=== PATIENT | female | born 1955 | race Caucasian/White ===

== ENCOUNTER 2020-03-16 18:05 | Emergency (ER) | payer MEDICARE, SELFPAY ==
[2020-03-16 18:28] VITALS: BP 147/75; PULSE 69; RESP 17; TEMP 36.7; O2SAT 96; BMI 26.5
--- NOTE | 2020-03-16 18:38 | ED_ITS ---
HPI - Fall General Chief Complaint: Fall Stated Complaint: Fall Time Seen by Provider: 03/16/20 18:36 Source: patient Mode of arrival: ambulatory Limitations: no limitations History of Present Illness MD complaint: fall Onset (ago): hour(s) Fall from: other ( getting other car) Fall witnessed: yes, by family Place fall occurred: street Loss of consciousness: none Prolonged down time: no Symptoms prior to fall: none Context: tripped/slipped ( was getting out of the car and got her foot stuck in pursed and fell out landing on the right elbow shoulder area.) Location of injury: other Location of injury - extremities: right: shoulder and elbow Related Data Home Medications Medication Instructions Recorded Confirmed etanercept 25 mg/0.5 mL 25 mg SUBCUT QWEEK 03/17/20 subcutaneous solution fluticasone 100 mcg-salmeterol 50 1 inh INHALATION Q12H 03/17/20 mcg/dose blistr powdr for inhalation loratadine 5 mg/5 mL oral solution 5 ml PO BID 03/17/20 Allergies Allergy/AdvReac Type Severity Reaction Status Date / Time Sulfa (Sulfonamide Allergy Unknown HIVES Verified 03/17/20 12:37 Antibiotics) [SULFA (SULFONAMIDE ANTIBIOTICS)] Review of Systems Review of Systems: Constitutional: No Weight loss, No Fever, No Chills, No Night Sweats, No Fatigue, No Malaise ENT/Mouth: No Hearing loss, No Ear Pain, No Nasal Congestion, No Sinus Pain, No Hoarseness, No sore throat, No Rhinorrhea, No Swallowing Difficulty Eyes: No Eye Pain, No Swelling, No Redness, No Foreign Body, No Discharge, No Vision Changes Cardiovascular: No Chest Pain, No SOB, No Dyspnea on Exertion, No Orthopnea, No Edema, No Palpitations Respiratory: No Cough, No Sputum, No Wheezing, No Smoke Exposure, No Dyspnea Gastrointestinal: No Nausea, No Vomiting, No Diarrhea, No Constipation, No abdominal Pain, No Hematochezia, No Melena Genitourinary: no irregular bleeding, No Dysuria, No Urinary Frequency, No Hematuria, No Urinary Incontinence, No Urgency, No Flank Pain, No Urinary Flow Changes, No Hesitancy Musculoskeletal:+ r elbow pain Skin: No Skin Lesions, No rash Neuro: No Weakness, No Numbness, No Paresthesias, No Loss of Consciousness, No Dizziness, No Headache Psych: No Anxiety/Panic, No Depression, No SI/HI/AH/VH, No Social Issues, Heme/Lymph: No Bruising, No Bleeding,No Lymphadenopathy Endocrine: No Polyuria, No Polydipsia, No Temperature Intolerance Yes all other systems are reviewed and are negative [facility] [place] Past Medical History Attestation statement: The following information was validated with the patient. Medical History History of ectopic Surgical History H/O: hysterectomy History of cataract surgery Social History Social History Smoking Status: Never smoker Physical Exam Vital Signs: Vital Signs: Vital Signs Temp Pulse Resp BP Pulse Ox 03/16/20 18:28 98.1 F 69 17 147/75 H 96 Body Mass Index 26.5 Const: General: cooperative and healthy appearing; No acute distress or intoxicated appearing Nutritional Appearance: average body habitus Orientation/consciousness: patient oriented x3 HENMT: Head: Yes normal to inspection Ears: hearing grossly normal b ilaterally Eyes: General: appearance normal, both eyes and all related structures Neck: Neck: Yes normal visual inspection and No tender Thyroid: Thyroid normal Chest: Chest palpation & inspection: normal inspection of the chest Resp: Effort & Inspection: normal respiratory effort Cardio: Jugular venous distension: no JVD : General: Yes no CVA tenderness Back/Spine/Pelvis: Back: no CVA tenderness Skin: General skin exam: no rashes or lesions noted Neuro: General: patient oriented x3 Extrem: General: Yes normal to inspection Shoulder/upper arm images: 1. Area of pain but no obvious injury or ecchymosis or bruising. 2. Course Course Course Narrative: Will need x-ray of her right elbow and shoulder. AP co nsistent with mechanical fall tripped on her purse. No other injury. No prodromal symptoms. No LOC. Not on blood thinners. Up-to-date on tetanus. Procedures Orthopedic Splinting/Casting Injury #1: Side: right Upper Extremity Injury Location: upper arm Upper Extremity Immobilizer: sling/shoulder immobilizer and posterior splint Additional Comments: right upper extremity posterior long-arm splint. Arm sling. Neurovascularly intact. Tolerated well. MDM - Fall Differential Diagnosis Differential diagnosis: Likely fracture ( Contusion, strain, sprain) Medical Records Attestation: I reviewed the patient's medical records. Lab Data Attestation: I reviewed the patient's lab results. Imaging Data right shoulder/right elbow: Radiologist's impression: [address] [address] XRay Report Signed Patient: David Wells#: [id number] : 5Acct:[id number] Age/Sex: 64 / FADM Date: 03/16/20 Loc: HO.ED Attending Dr: Ordering Physician: Flaco Kennedy NP Date of Service: 03/16/20 Procedure(s): XR elbow RT min 3V Accession Number(s): [id number] cc: Flaco Kennedy NP~ Examination: XR shoulder RT min 2V, XR elbow RT min 3V Indication: pain s/p fall Comparison: No pertinent prior studies are currently available for comparison. Technique: 3 views of the right shoulder and 3 views of the right elbow obtained. Findings: Right shoulder: Humeral head is well-seated within the glenoid fossa. Bones are normal anatomic alignment. I do not appreciate any acute fracture or dislocation. Minimal degenerative changes in the right acromioclavicular joint. Visualized right upper chest unremarkable. Right elbow: Moderate-sized elbow joint effusion is seen. Minimally displaced fracture through the radial head and neck is seen. This does extend to the articular surface where there is approximately 1 mm of distraction along the anterior surface. No other acute bony abnormality. Impression: Minimally displaced fracture through the radial head extending into the radial neck with associated elbow joint effusion Dictated By:JEANETH BUNN MD Signed By:<Electronically signed by JEANETH BUNN MD in OV>03/16/207 DD/ 183 TD/TT: Message And Delivery Service Pricer: GIAN Discharge Plan Discharge Clinical Impression: Fracture of head of right radius Patient Disposition: Home, Self-Care Instructions: Elbow Fracture (ED) Additional Instructions: ice Elevate Sleeve splint in place until you see orthopedics Sling for comfort Tylenol versus ibuprofen for pain discomfort per label instructions Follow up with Orthopedics in the next 7 days Return if any concerns or worsening symptoms Thank you Referrals: Nathaniel Vo MD [Physician] - 1 week Interventions: ED Discharge Assessment Last Done: 03/16/20 21:26 Discharge Date/Time: 03/16/20 21:27
[2020-03-16 20:09] VITALS: BP 124/55; PULSE 59; RESP 16
--- NOTE | 2020-03-16 20:33 | PC.NURSE ---
POSTERIOR LONG ARM SPLINT APPLIED TO R ARM.
[2020-03-16] MEDS: Acetaminophen 325 MG TABLET 975 MG PO (20:52)
== END 2020-03-16 21:27 | disposition home or self-care (01) ==
PROVIDERS: Emergency Provider Internal Medicine; PCP Internal Medicine
DX: S52.121A Displaced fracture of head of right radius, initial encounter for closed fracture (principal); V48.4XXA Person boarding or alighting a car injured in noncollision transport accident, initial encounter; Y93.89 Activity, other specified; Y92.014 Private driveway to single-family (private) house as the place of occurrence of the external cause; Y99.9 Unspecified external cause status
CPT/HCPCS: 29105; 73030; 73080; 99284

== ENCOUNTER → 2020-03-17 12:35 | Outpatient (BNVA) | payer MEDICARE, SELFPAY | PROVIDERS: PCP Internal Medicine; Visit Provider Physician Assistant | DX: S52.124A Nondisplaced fracture of head of right radius, initial encounter for closed fracture (principal) | CPT/HCPCS: 29105; 99213 ==

== ENCOUNTER 2020-03-25 11:15 | Outpatient (REF) | payer MEDICARE, SELFPAY ==
--- NOTE | 2020-03-25 11:35 | XR_ITS ---
EXAMINATION: XR ELBOW, RIGHT CLINICAL INFORMATION: Nondisplaced fracture of the right radial head. COMPARISON: Right elbow x-rays of 03/16/2020. TECHNIQUE: AP, lateral, and oblique views of the right elbow. FINDINGS: Splinting material is noted over the elbow, distal arm and proximal forearm. Vertically-oriented minimally displaced fracture of the right radial head is again noted, best seen on the oblique view. The minimal displacement appears to be slightly more prominent compared to previous study and may suggest increased displacement versus appears related to technical differences. There is no evidence of associated changes of healing at this time. Elbow joint effusion is noted. No additional fractures are noted. XR/XR elbow RT min 3V IMPRESSION: Minimally displaced right radial head fracture as detailed above without associated changes of healing at this time. Elbow joint effusion noted.
== END 2020-03-25 11:16 | disposition home or self-care (01) ==
LOC: HO.XRAY 11:15
PROVIDERS: Visit Provider Physician Assistant
DX: S52.124A Nondisplaced fracture of head of right radius, initial encounter for closed fracture (principal)
CPT/HCPCS: 29125; 73080; 99212

== ENCOUNTER → 2020-03-25 11:15 | Outpatient (BNVA) | payer MEDICARE, SELFPAY | PROVIDERS: Visit Provider Physician Assistant | DX: S52.124A Nondisplaced fracture of head of right radius, initial encounter for closed fracture (principal); X58.XXXA Exposure to other specified factors, initial encounter; Y93.9 Activity, unspecified; Y92.9 Unspecified place or not applicable; Y99.8 Other external cause status | CPT/HCPCS: 99212 ==

== ENCOUNTER 2020-04-02 10:43 | Outpatient (REF) | payer MEDICARE, SELFPAY ==
--- NOTE | 2020-04-02 10:47 | XR_ITS ---
EXAMINATION: XR ELBOW, RIGHT CLINICAL INFORMATION: Nondisplaced fracture right radial head. Follow up. COMPARISON: Radiographs right elbow 03/25/2020, 03/16/2020. TECHNIQUE: AP, lateral, and oblique views of the right elbow. FINDINGS: The intra-articular fracture radial head is still visible. There is no change in alignment. The intracapsular effusion has decreased since 03/16/2020. There is no destructive process. XR/XR elbow RT min 3V IMPRESSION: Fracture still visible. Intracapsular effusion decreased. No change in alignment.
== END 2020-04-02 10:44 | disposition home or self-care (01) ==
LOC: HO.HOSX 10:43
PROVIDERS: Visit Provider Physician Assistant
DX: S52.124A Nondisplaced fracture of head of right radius, initial encounter for closed fracture (principal)
CPT/HCPCS: 73080; 99212

== ENCOUNTER 2020-04-17 09:29 | Outpatient (REF) | payer MEDICARE, SELFPAY ==
--- NOTE | 2020-04-17 09:32 | XR_ITS ---
EXAMINATION: XR ELBOW, RIGHT CLINICAL INFORMATION: Fracture COMPARISON: Previous x-rays most recent 04/02/2020 TECHNIQUE: AP, lateral, and oblique views of the right elbow. FINDINGS: There is a vertically minimally displaced fracture of the right radial head. There is some bony callus formation seen. Fracture line is still seen. Alignment is not appreciably changed. The joint spaces are normal. There is a joint effusion. XR/XR elbow RT min 3V IMPRESSION: No appreciable change in the minimally displaced vertical fracture of the radial head.
== END 2020-04-17 09:30 | disposition home or self-care (01) ==
LOC: HO.HOSX 09:29
PROVIDERS: PCP Internal Medicine; Visit Provider Physician Assistant
DX: S52.124A Nondisplaced fracture of head of right radius, initial encounter for closed fracture (principal); M25.521 Pain in right elbow
CPT/HCPCS: 73080; 99212

== ENCOUNTER 2020-05-04 13:00 | Outpatient (RCR) | payer MEDICARE, SELFPAY | END 2020-07-21 07:22 | disposition home or self-care (01) | LOC: HO.OT 13:00 | PROVIDERS: Visit Provider Physician Assistant | DX: S52.124D Nondisplaced fracture of head of right radius, subsequent encounter for closed fracture with routine healing (principal) | CPT/HCPCS: 97110; 97140; 97166 ==

== ENCOUNTER 2020-06-10 12:06 | Outpatient (REF) | payer MEDICARE, SELFPAY ==
--- NOTE | 2020-06-10 12:46 | XR_ITS ---
EXAMINATION: XR ELBOW, RIGHT CLINICAL INFORMATION: Fracture radial head. COMPARISON: Radiographs right elbow 04/17/2020 TECHNIQUE: AP, lateral, and oblique views of the right elbow. FINDINGS: Intra-articular vertically oriented fracture radial head is still faintly visible. There is osseous bridging along the radial side radial neck. Fracture line still clearly visible at the articular surface. No change in alignment. No interval depression. No new fracture or dislocation or destructive process. XR/XR elbow RT min 3V IMPRESSION: Fracture radial head. No interval compression or change in alignment.
== END 2020-06-10 12:07 | disposition home or self-care (01) ==
LOC: HO.HOSX 12:06
PROVIDERS: Visit Provider Physician Assistant
DX: S52.121D Displaced fracture of head of right radius, subsequent encounter for closed fracture with routine healing (principal)
CPT/HCPCS: 73080; 99212